=== PATIENT | male | born 1995 | race Caucasian/White ===

== ENCOUNTER 2019-04-20 23:12 | Emergency (ER) | payer BC ==
[2019-04-20] MEDS ORDERED: Sodium Chloride 0.9% 2.5 ML Syringe FLUSH PRN (23:45)
[2019-04-20] MEDS ORDERED: Sodium Chloride 0.9% 10 ML Syringe FLUSH PRN (23:45)
[2019-04-20] MEDS ORDERED: Morphine 2 MG/ML Syringe IVPUSH ONE (23:46)
[2019-04-20] MEDS ORDERED: Ondansetron 4 MG/2 ML SDV IVPUSH ONE (23:46)
[2019-04-20] MEDS ORDERED: Sodium Chloride 0.9% 1,000 ML IV ONE (23:46)
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
[2019-04-21 00:49] LABS: CHLORIDE,CL 101 mmol/L (98-107); SODIUM,NA 141 mmol/L (136-148)
[2019-04-21] MEDS ORDERED: Morphine 2 MG/ML Syringe IVPUSH ONE (01:11)
[2019-04-21] MEDS ORDERED: Iopamidol 755 Mg/ML 100 ML Bottle IVPUSH ONE (01:20)
--- NOTE | 2019-04-21 02:27 | CT ---
INDICATION: Pain after fall TECHNIQUE: CT chest was acquired with 100 cc Isovue 370 contrast. COMPARISON: Chest CT 12/05/2017 FINDINGS: Lungs and pleural: No pleural effusion or pneumothorax. Minimal apical subpleural bulla. No pulmonary contusion or acute consolidation. Heart and vasculature: Heart size is normal. Thoracic aorta and pulmonary artery are normal in caliber. Lymph nodes/mediastinum: No mediastinal, hilar, or axillary adenopathy. Thyroid gland is normal. Chest wall: No masses. Bones: Unremarkable for age. IMPRESSION: Unremarkable chest CT. Please note that all CT scans at this facility use dose modulation, iterative reconstruction, and/or weight-based dosing when appropriate to reduce radiation dose to as low as reasonably achievable. Dictated by Edmar Perez MD @ Apr 21 2019 2:21AM Signed by Dr. Edmar Perez @ Apr 21 2019 2:25AM
--- NOTE | 2019-04-21 02:36 | CT ---
INDICATION: Pain after fall TECHNIQUE: CT abdomen and pelvis acquired with 100 cc Isovue 370 intravenous contrast. COMPARISON: None. FINDINGS: Lower chest: Unremarkable. Liver: There is a laceration of the left lobe of the liver at the dome extending along segment 4 to the superior aspect of the caudate lobe. Laceration measures 5 centimeters in length and there is associated disruption of the capsule with hematoma extending into the peritoneal cavity. Laceration extends adjacent to the middle hepatic vein although without discrete transection. Gallbladder and bile ducts: Unremarkable. No stones or inflammation. No biliary dilatation. Pancreas: Unremarkable. No mass or inflammation. Spleen: Unremarkable. Normal in size. No masses. Adrenal glands: Unremarkable. No nodules. Kidneys: Unremarkable. No masses, stones, or hydronephrosis. GI tract: No dilated loops of large or small intestine. Vasculature: Unremarkable. Lymph nodes: No lymphadenopathy. Omentum/Peritoneum/Abdominal Wall: Moderate hemoperitoneum extending from the liver laceration along the right flank into the pelvis. Pelvis: Unremarkable. Bones: Unremarkable for age. IMPRESSION: 1. Liver laceration extending into the left lobe and superior margin of the caudate lobe measuring greater than 5 centimeters (Grade III) with extension through the capsule and associated moderate hemoperitoneum extending along the right flank into the pelvis. Please note that all CT scans at this facility use dose modulation, iterative reconstruction, and/or weight-based dosing when appropriate to reduce radiation dose to as low as reasonably achievable. Dictated by Edmar Perez MD @ Apr 21 2019 2:25AM Signed by Dr. Edmar Perez @ Apr 21 2019 2:34AM
[2019-04-21] MEDS ORDERED: Sodium Chloride 0.9% 1,000 ML IV ONE (02:41)
[2019-04-21] MEDS ORDERED: Lactated Ringers 1,000 ML IV SCH (02:45)
== END 2019-04-21 04:00 ==
LOC: MW.ED 23:12
DX: S36.113A Laceration of liver, unspecified degree, initial encounter (principal); D72.829 Elevated white blood cell count, unspecified; F17.210 Nicotine dependence, cigarettes, uncomplicated; Z88.8 Allergy status to other drugs, medicaments and biological substances; Y08.89XA Assault by other specified means, initial encounter; W17.89XA Other fall from one level to another, initial encounter
CPT/HCPCS: 71260; 74177; 80053; 80305; 81003; 82150; 83605; 83690; 85025; 85610; 96361; 96374; 96375; 96376; 99285; G0480; J2270; J2405; J7040; Q9967

== ENCOUNTER 2022-02-06 11:29 | Emergency (ER) | payer BC ==
[2022-02-06] MEDS ORDERED: oxyCODONE 5 MG Tab PO ONE (11:45)
[2022-02-06] MEDS ORDERED: Ibuprofen 400 MG Tab PO ONE (11:45)
== END 2022-02-06 13:00 | disposition home or self-care (01) ==
LOC: MW.ED 11:29
DX: S82.832A Other fracture of upper and lower end of left fibula, initial encounter for closed fracture (principal); Z88.1 Allergy status to other antibiotic agents; W18.31XA Fall on same level due to stepping on an object, initial encounter; Y92.008 Other place in unspecified non-institutional (private) residence as the place of occurrence of the external cause
CPT/HCPCS: 29515; 73610; 99283; A9270

== ENCOUNTER 2022-02-11 10:27 | Day surgery (SDC) | payer BC ==
[~2022-02-11 10:27] MED LIST: Lactated Ringers 1,000 ML IV SCH
[2022-02-11] MEDS ORDERED: Bupivacaine 0.25%/EPINEPHrine 1:200,000 10 ML SDV ONE (10:29)
[2022-02-11] MEDS ORDERED: HYDROmorphone 1 MG/ML Syringe IVPUSH PRN (11:21)
[2022-02-11] MEDS ORDERED: Ondansetron 4 MG/2 ML SDV IVPUSH PRN (11:21)
[2022-02-11] MEDS ORDERED: Metoclopramide 10 MG/2 ML SDV IVPUSH PRN (11:21)
[2022-02-11] MEDS ORDERED: fentaNYL 100 MCG/2 ML SDV IVPUSH PRN (11:21)
[2022-02-11] MEDS ORDERED: Albuterol 0.083% 2.5 MG/3 ML Neb Soln NEB PRN (11:21)
[2022-02-11] MEDS ORDERED: Naloxone 0.4 MG/ML SDV IVPUSH PRN (11:21)
[2022-02-11] MEDS ORDERED: Propofol 200 MG/20 ML SDV ONE (11:30)
[2022-02-11] MEDS ORDERED: fentaNYL 250 MCG/5 ML SDV ONE (11:30)
[2022-02-11] MEDS ORDERED: ceFAZolin 2 GM in Premix Bag 1 BAG IV SCH (12:00)
[2022-02-11] MEDS ORDERED: Ketorolac 30 MG/ML SDV ONE (12:32)
[2022-02-11] MEDS ORDERED: Ondansetron 4 MG/2 ML SDV ONE (12:32)
[2022-02-11] MEDS ORDERED: Dexamethasone 4 MG/ML 5 ML MDV ONE (12:32)
== END 2022-02-11 15:14 | disposition home or self-care (01) ==
LOC: MW.SDS 10:27
PROVIDERS: ATTEND Orthopaedic Surgery
DX: S82.832A Other fracture of upper and lower end of left fibula, initial encounter for closed fracture (principal); Z88.8 Allergy status to other drugs, medicaments and biological substances; Z98.890 Other specified postprocedural states; Z87.891 Personal history of nicotine dependence
CPT/HCPCS: 27792; 76000; C1713; J1100; J1170; J1885; J2405; J2704; J3010; J3490; J7120; 01480